=== PATIENT | male | born 1975 | race Caucasian/White ===

== ENCOUNTER → 2018-11-03 08:28 | Outpatient (CLI) | payer BC ==
[2018-11-03 08:58] LABS: BASOPHILS 0.6 % (0-2); HEMATOCRIT 42.2 % (42.0-54.0); HEMOGLOBIN 15.2 g/dL (13.5-17.5); IMMATURE GRANULOCYTES 0.7 % (0-5); LYMPHOCYTES 25.1 % (15-50); MCH 31.7 pg (26.0-34.0); MCV 88.1 fL (80.0-100.0); MEAN PLATELET VOLUME 9.8 fL (7.4-10.4); MONOCYTES 10.7 % (2-11); NEUTROPHILS 60.9 % (40-80); PLATELET COUNT 259 10x3/uL (130-400); RBC 4.79 10x6/uL (4.20-6.10); RDW 13.2 % (11.5-14.5); WBC 7.1 10x3/uL (4.8-10.8)
[2018-11-03 09:38] LABS: ANION GAP 10.2 mmol/L (8-16); BILIRUBIN - TOTAL 0.59 mg/dL (0.2-1.3); CARBON DIOXIDE 30.1 mmol/L (21.0-32.0); CHOL - HDL RATIO 2.2 ratio (2.3-4.9); CREATININE - SERUM 1.3 mg/dL (0.6-1.3); LDL-HDL RATIO 0.9 ratio (1.5-3.5); POTASSIUM - SERUM 4.3 mmol/L (3.5-5.1); PROTEIN - SERUM 7.4 g/dL (6.4-8.2); THYROID STIMULATING HORMONE 1.35 uIU/mL (0.36-3.74)
== END | disposition home or self-care (01) ==
LOC: D.LAB 08:28
PROVIDERS: ATTEND Family Medicine
DX: Z00.00 Encounter for general adult medical examination without abnormal findings (principal); F34.1 Dysthymic disorder; E78.2 Mixed hyperlipidemia